=== PATIENT | male | born 1980 | race Two or more races ===

== ENCOUNTER 2018-03-30 11:31 | Emergency (ER) | payer OTHER ==
[~2018-03-30] VITALS: Ht 165.1 cm; Wt 83.9 kg
[2018-03-30 11:37] VITALS: BP 145/84
== END 2018-03-30 12:30 | disposition home or self-care (01) ==
LOC: ER 11:32
DX: S60.221A Contusion of right hand, initial encounter (principal); Y04.8XXA Assault by other bodily force, initial encounter; Y93.89 Activity, other specified; Y92.89 Other specified places as the place of occurrence of the external cause; Y99.8 Other external cause status
CPT/HCPCS: 73130-TC; A4606; Z7610